=== PATIENT | female | born 1970 | race Caucasian/White ===

== ENCOUNTER 2016-08-10 05:37 | Day surgery (SDC) | payer OTHER ==
[~2016-08-10] VITALS: Ht 154.9 cm; Wt 104.3 kg
[2016-08-10] VITALS (8 sets, daily range): BP systolic 62–116; BP diastolic 32–62
[~2016-08-10 05:37] MED LIST: ASPIRIN325 MG PO; B COMPLEX #11 EACH PO; BIRTH CONTROL; Benadryl PO; CALCIUM CITRAT250 MG PO; COLESTID1 GM PO; COQ-10100 MG PO; COREG25 M1 PO; CYMBALTA60 MG PO; Coreg PO; Cymbalta PO; DEXILANT60 MG PO; ERGOCALCIF50000 UNIT PO; Ecotrin PO; FLEXERIL10 MG PO; FLINTSTONES CO1 EAC1 PO; Fish Oil PO; GABAPENTIN600 MG PO; K-DUR20 MEQ PO; KAPIDEX60 MG PO; LASIX40 MG PO; LASIX80 MG PO; LOSARTAN POTASS50 MG PO; MAGNESIUM CHELATED PO; Motrin PO; NEURONTIN600 MG PO; OMEGA-3 FISH O1 EA11 PO; RESTASIS MULTI5.5 ML BOTH EYES; TRAMADOL HCL50 MG PO; VITAMIN D PO; VITAMIN D5000 UNI1 PO; WELCHOL625 MG PO; Zestril,Prinivil PO
[2016-08-10 17:34] LABS: EOSINOPHIL (%) 0 % (0-5); HEMATOCRIT 41.2 % (36.0-46.0); IMMATURE GRANULOCYTE (%) 0.3 % (0.0-0.7); INSTRUMENT ABS NEUTROPHIL CT 9.2 K/uL; MCH 29.7 PG (29.0-34.0); MCHC 34.2 G/DL (30.0-36.0); MCV 86.9 FL (83-99); MEAN PLAT.VOLUME 10.3 uM^3 (9.5-12.4); MONOCYTE (%) 1.7 % (3-12); MONOCYTE COUNT 0.2 K/uL (0-0.8); NEUTROPHIL (%) 88.3 % (45-76); NEUTROPHIL COUNT 9.2 K/uL (1.8-6.4); PLATELET COUNT 206 K/uL (156-360); RBC DIS.WIDTH-CV 11.8 % (11.8-14.6); RBC DIS.WIDTH-SD 37.9 % (39-53); RED BLOOD COUNT 4.74 M/uL (3.80-5.20); WHITE BLOOD COUNT 10.4 K/uL (4.1-10.2)
[2016-08-10 17:42] LABS: ANION GAP 8 MEQ/L (2-14); CHLORIDE 102 MEQ/L (99-109); SAMPLE HEMOLYSIS CHECK 0; SAMPLE ICTERIC CHECK 0; SAMPLE LIPEMIA CHECK 0; SODIUM 136 MEQ/L (136-147)
[2016-08-10 17:47] LABS: GFR ESTIMATE (CALCULATED) > 59 mL/min/; GLUCOSE 148 mg/dL (70-99); UREA NITROGEN (BUN) 11 mg/dL (9-23)
[2016-08-10 20:59] LABS: HEMATOCRIT 38.1 % (36.0-46.0); MCH 30.3 PG (29.0-34.0); MCHC 34.4 G/DL (30.0-36.0); MCV 88.2 FL (83-99); MEAN PLAT.VOLUME 10.7 uM^3 (9.5-12.4); PLATELET COUNT 213 K/uL (156-360); RBC DIS.WIDTH-CV 11.8 % (11.8-14.6); RBC DIS.WIDTH-SD 37.9 % (39-53); RED BLOOD COUNT 4.32 M/uL (3.80-5.20); WHITE BLOOD COUNT 10.6 K/uL (4.1-10.2)
[2016-08-10 21:11] LABS: D-DIMER ELISA 2.13 mg/L FEU (< 0.57)
[2016-08-10 21:20] LABS: TROP-I INTERPRETATION NEGATIVE; TROPONIN-I < 0.01 ng/mL (0.0-0.30)
[2016-08-11 03:47] VITALS: BP 109/53
[2016-08-11 07:02] VITALS: BP 97/47
[2016-08-11 07:34] LABS: EOSINOPHIL (%) 0.1 % (0-5); HEMATOCRIT 35.7 % (36.0-46.0); IMMATURE GRANULOCYTE (%) 0.4 % (0.0-0.7); INSTRUMENT ABS NEUTROPHIL CT 8.2 K/uL; LYMPHOCYTE COUNT 1.8 K/uL (1.0-2.8); MCH 29.8 PG (29.0-34.0); MCHC 33.3 G/DL (30.0-36.0); MCV 89.5 FL (83-99); MEAN PLAT.VOLUME 10.8 uM^3 (9.5-12.4); MONOCYTE (%) 7.1 % (3-12); MONOCYTE COUNT 0.8 K/uL (0-0.8); NEUTROPHIL (%) 75.9 % (45-76); NEUTROPHIL COUNT 8.2 K/uL (1.8-6.4); PLATELET COUNT 184 K/uL (156-360); RBC DIS.WIDTH-CV 11.9 % (11.8-14.6); RBC DIS.WIDTH-SD 38.1 % (39-53); RED BLOOD COUNT 3.99 M/uL (3.80-5.20); WHITE BLOOD COUNT 10.8 K/uL (4.1-10.2)
[2016-08-11 07:58] LABS: ANION GAP 6 MEQ/L (2-14); CHLORIDE 103 MEQ/L (99-109); GFR ESTIMATE (CALCULATED) > 59 mL/min/; GLUCOSE 123 mg/dL (70-99); POTASSIUM 4.1 MEQ/L (3.7-5.4); SAMPLE HEMOLYSIS CHECK 0; SAMPLE ICTERIC CHECK 0; SAMPLE LIPEMIA CHECK 0; SODIUM 139 MEQ/L (136-147); UREA NITROGEN (BUN) 9 mg/dL (9-23)
[2016-08-11 12:01] VITALS: BP 94/54
[2016-08-11 15:20] VITALS: BP 106/53
[2016-08-11 19:34] VITALS: BP 98/69
[2016-08-12 00:01] VITALS: BP 115/70
[2016-08-12 03:50] VITALS: BP 133/73
[2016-08-12 07:14] VITALS: BP 118/66
[2016-08-12 07:44] LABS: EOSINOPHIL (%) 2.1 % (0-5); EOSINOPHIL COUNT 0.2 K/uL (0-0.3); HEMATOCRIT 36.2 % (36.0-46.0); IMMATURE GRANULOCYTE (%) 0.3 % (0.0-0.7); INSTRUMENT ABS NEUTROPHIL CT 3.7 K/uL; LYMPHOCYTE COUNT 2.6 K/uL (1.0-2.8); MCH 29.9 PG (29.0-34.0); MCHC 32.6 G/DL (30.0-36.0); MCV 91.9 FL (83-99); MEAN PLAT.VOLUME 10.7 uM^3 (9.5-12.4); MONOCYTE (%) 8.5 % (3-12); MONOCYTE COUNT 0.6 K/uL (0-0.8); NEUTROPHIL (%) 52.1 % (45-76); NEUTROPHIL COUNT 3.7 K/uL (1.8-6.4); PLATELET COUNT 166 K/uL (156-360); RBC DIS.WIDTH-CV 12.4 % (11.8-14.6); RBC DIS.WIDTH-SD 41.7 % (39-53); RED BLOOD COUNT 3.94 M/uL (3.80-5.20); WHITE BLOOD COUNT 7.1 K/uL (4.1-10.2)
[2016-08-12 08:07] LABS: ALKALINE PHOSPHATASE 56 IU/L (3-129); ANION GAP 6 MEQ/L (2-14); CHLORIDE 106 MEQ/L (99-109); GFR ESTIMATE (CALCULATED) > 59 mL/min/; POTASSIUM 4.2 MEQ/L (3.7-5.4); SAMPLE HEMOLYSIS CHECK 0; SAMPLE ICTERIC CHECK 0; SAMPLE LIPEMIA CHECK 0; SODIUM 143 MEQ/L (136-147); TOTAL BILIRUBIN 0.4 MG/DL (0.0-1.0); UREA NITROGEN (BUN) 14 mg/dL (9-23)
[2016-08-12 08:16] LABS: GLUCOSE 75 mg/dL (70-99)
[2016-08-12 09:06] VITALS: BP 120/68
== END 2016-08-12 11:08 | disposition home or self-care (01) ==
LOC: SDC 05:37 → 2EASTP 09:04 → 2SOUTH 09:04 → SDC 12:15 → 2EASTP 13:04 → SDC 14:40 → 2EASTP 08-12 11:08
PROVIDERS: Obstetrics & Gynecology Gynecology
DX: N92.1 Excessive and frequent menstruation with irregular cycle (principal); D25.1 Intramural leiomyoma of uterus; N80.0 Endometriosis of uterus; N72 Inflammatory disease of cervix uteri; I95.81 Postprocedural hypotension; R33.9 Retention of urine, unspecified; E66.01 Morbid (severe) obesity due to excess calories; Z68.41 Body mass index [BMI] 40.0-44.9, adult; I42.8 Other cardiomyopathies; I50.32 Chronic diastolic (congestive) heart failure; I51.4 Myocarditis, unspecified; Q61.5 Medullary cystic kidney; K21.9 Gastro-esophageal reflux disease without esophagitis; E55.9 Vitamin D deficiency, unspecified; Z86.19 Personal history of other infectious and parasitic diseases; Z82.49 Family history of ischemic heart disease and other diseases of the circulatory system; Z84.1 Family history of disorders of kidney and ureter; Z83.42 Family history of familial hypercholesterolemia; Z80.3 Family history of malignant neoplasm of breast; Z82.5 Family history of asthma and other chronic lower respiratory diseases; Z79.82 Long term (current) use of aspirin; Z88.8 Allergy status to other drugs, medicaments and biological substances
CPT/HCPCS: 80048; 80053; 84484; 85025; 85027; 85379; 86900; 86901; 87086; 88307; G0378; J0131; J0330; J0690; J1100; J1170; J1885; J2250; J2270; J2405; J2710; J3010; J7120; P9045

== ENCOUNTER 2016-08-15 23:23 | Emergency (ER) | payer OTHER ==
[~2016-08-15] VITALS: Ht 154.9 cm; Wt 100.0 kg
[2016-08-16 00:36] VITALS: BP 98/63
== END 2016-08-16 00:37 | disposition home or self-care (01) ==
LOC: EME 23:23
DX: Z46.6 Encounter for fitting and adjustment of urinary device (principal); Z90.710 Acquired absence of both cervix and uterus; J45.909 Unspecified asthma, uncomplicated; I50.9 Heart failure, unspecified
CPT/HCPCS: 99281; 99284